=== PATIENT | female | born 1995 | race Caucasian/White ===

== ENCOUNTER 2022-02-17 16:30 | Emergency (ER) | payer BC ==
[2022-02-17 17:01] VITALS: BP 117/79
[2022-02-17] MEDS ORDERED: predniSONE 20 MG Tab PO ONE (18:00)
[2022-02-17] MEDS ORDERED: Famotidine 20 MG Tab PO ONE (18:00)
[2022-02-17 19:12] VITALS: PULSE 55
== END 2022-02-17 19:12 | disposition home or self-care (01) ==
LOC: JD.ED 16:30
DX: T78.40XA Allergy, unspecified, initial encounter (principal); Z91.09 Other allergy status, other than to drugs and biological substances; Z91.048 Other nonmedicinal substance allergy status
CPT/HCPCS: 99283; A9270; J7512; 99282

== ENCOUNTER 2023-01-31 03:30 | Inpatient (IN) | payer OTHER, MEDICAID ==
[~2023-01-31 03:30] MED LIST: Ropivacaine 0.2% PF 2 MG/ML 20 ML SDV ONE
[2023-01-31] MEDS ORDERED: Acetaminophen 325 MG Tab PO PRN (04:06)
[2023-01-31] MEDS ORDERED: Lidocaine 1% 50 ML MDV INJECT ONE (04:06)
[2023-01-31] MEDS ORDERED: Ondansetron 4 MG/2 ML SDV IVPUSH PRN (04:06)
[2023-01-31] MEDS ORDERED: Nalbuphine 10 MG/0.5 ML Syringe IVPUSH PRN (04:06)
[2023-01-31] MEDS ORDERED: Sodium Chloride 0.9% 10 ML Syringe FLUSH PRN (04:06)
[2023-01-31] MEDS ORDERED: Calcium Carbonate 500 MG Tab.Chew PO PRN (04:06)
[2023-01-31] MEDS ORDERED: Oxytocin/Lactated Ringers 10 UNIT/1,000 ML BAG IV SCH ×2 (04:15)
[2023-01-31] MEDS: Lactated Ringers 1,000 ML IV SCH ×4 (04:24→10:52)
[2023-01-31 04:28] LABS: BASOPHILS ABSOLUTE AUTO 0.02 K/mm3 (0.01-0.08); BASOPHILS PERCENT AUTO 0.1 % (0.1-1.2); EOSINOPHILS ABSOLUTE AUTO 0.19 K/mm3 (0.04-0.36); EOSINOPHILS PERCENT AUTO 0.9 (0.7-5.8); HEMATOCRIT 40.3 % (34.1-44.9); HEMOGLOBIN 13.3 gm/dl (11.2-15.7); IMMATURE GRAN PERCENT AUTO 0.5 % (<=1.0); LYMPHOCYTES ABSOLUTE AUTO 1.62 K/mm3 (1.18-3.74); LYMPHOCYTES PERCENT AUTO 7.8 % (19.3-51.7); MEAN CORPUSCULAR HEMOGLOBIN 29.6 pg (25.6-32.2); MEAN CORPUSCULAR VOLUME 89.8 fl (79.4-94.8); MEAN PLATELET VOLUME 11.6 fl (9.4-12.3); MONOCYTES PERCENT AUTO 7.2 % (4.7-12.5); NEUTROPHILS ABSOLUTE AUTO 17.27 K/mm3 (1.56-6.13); NEUTROPHILS PERCENT AUTO 83.5 % (34.0-71.1); PLATELET COUNT,PLT 170 K/mm3 (182-369); RED BLOOD CELL COUNT 4.49 M/mm3 (3.98-5.22)
[2023-01-31] MEDS ORDERED: ePHEDrine 50 MG/ML SDV IVPUSH PRN (05:15)
[2023-01-31] MEDS ORDERED: diphenhydrAMINE 50 MG/ML SDV IVPUSH PRN (05:15)
[2023-01-31] MEDS ORDERED: fentaNYL 100 MCG/2 ML SDV EPIDUR PRN (05:15)
[2023-01-31] MEDS ORDERED: Bupivacaine/fentaNYL/NS 100 ML Bag EPIDUR PRN (05:15)
[2023-01-31] MEDS ORDERED: Benzocaine/Menthol 20%-0.5% Spray 78 GM Cannister TOP PRN (10:25)
[2023-01-31] MEDS ORDERED: Ibuprofen 600 MG Tab PO PRN (10:25)
[2023-01-31] MEDS ORDERED: Witch Hazel Medicated Pads 40/Jar TOP PRN (10:25)
[2023-01-31 15:05] LABS: BASOPHILS ABSOLUTE AUTO 0.02 K/mm3 (0.01-0.08); BASOPHILS PERCENT AUTO 0.1 % (0.1-1.2); EOSINOPHILS ABSOLUTE AUTO 0.04 K/mm3 (0.04-0.36); EOSINOPHILS PERCENT AUTO 0.2 (0.7-5.8); HEMATOCRIT 36.5 % (34.1-44.9); HEMOGLOBIN 11.9 gm/dl (11.2-15.7); IMMATURE GRAN ABSOLUTE AUTO 0.09 K/mm3 (0.00-0.10); IMMATURE GRAN PERCENT AUTO 0.4 % (<=1.0); LYMPHOCYTES ABSOLUTE AUTO 1.82 K/mm3 (1.18-3.74); LYMPHOCYTES PERCENT AUTO 7.6 % (19.3-51.7); MEAN CORPUSCULAR HEMOGLOBIN 29.4 pg (25.6-32.2); MEAN CORPUSCULAR HGB CONC 32.6 g/dl (32.2-35.5); MEAN CORPUSCULAR VOLUME 90.1 fl (79.4-94.8); MEAN PLATELET VOLUME 11.8 fl (9.4-12.3); MONOCYTES ABSOLUTE AUTO 1.63 K/mm3 (0.24-0.36); MONOCYTES PERCENT AUTO 6.8 % (4.7-12.5); NEUTROPHILS ABSOLUTE AUTO 20.21 K/mm3 (1.56-6.13); NEUTROPHILS PERCENT AUTO 84.9 % (34.0-71.1); PLATELET COUNT,PLT 157 K/mm3 (182-369); RED BLOOD CELL COUNT 4.05 M/mm3 (3.98-5.22); WHITE BLOOD CELL COUNT,WBC 23.81 K/mm3 (3.98-10.04)
[2023-01-31 15:33] LABS: SLIDE REVIEW ABNORMAL SMEAR
[2023-01-31 19:35] VITALS: BP 127/72; PULSE 99
== END 2023-01-31 19:40 | disposition home or self-care (01) | DRG 806 ==
LOC: JD.OBCHECK 03:30 → JD.OB 04:09 → OBSVTOIN 09:14 → JD.OB 09:14
PROVIDERS: ADMIT Family Medicine; ATTEND Family Medicine
PROC: 0KQM0ZZ Repair Perineum Muscle, Open Approach (ICD-10-PCS; principal; 2023-01-31)
PROC: 00HU33Z Insertion of Infusion Device into Spinal Canal, Percutaneous Approach (ICD-10-PCS; principal; 2023-01-31)
PROC: 3E0R3BZ Introduction of Anesthetic Agent into Spinal Canal, Percutaneous Approach (ICD-10-PCS; principal; 2023-01-31)
PROC: 10E0XZZ Delivery of Products of Conception, External Approach (ICD-10-PCS; principal; 2023-01-31)
DX: O42.02 Full-term premature rupture of membranes, onset of labor within 24 hours of rupture (principal); O99.12 Other diseases of the blood and blood-forming organs and certain disorders involving the immune mechanism complicating childbirth; Z37.0 Single live birth; O48.0 Post-term pregnancy; D69.6 Thrombocytopenia, unspecified; O70.1 Second degree perineal laceration during delivery; O66.0 Obstructed labor due to shoulder dystocia; O69.81X0 Labor and delivery complicated by cord around neck, without compression, not applicable or unspecified; O77.0 Labor and delivery complicated by meconium in amniotic fluid; Z3A.40 40 weeks gestation of pregnancy; Z88.8 Allergy status to other drugs, medicaments and biological substances
CPT/HCPCS: 36415; 51702; 59025; 59409; 85025; 86140; 86592; A9270-GY; J2590; J2795; J7120

== ENCOUNTER 2023-05-26 21:20 | Emergency (ER) | payer SELFPAY ==
[2023-05-26 21:40] VITALS: BP 125/64; PULSE 50
[2023-05-26] MEDS ORDERED: Sodium Chloride 0.9% 10 ML Syringe FLUSH PRN (22:38)
[2023-05-26 22:53] LABS: BASOPHILS ABSOLUTE AUTO 0.1 K/mm3 (0.0-0.2); BASOPHILS PERCENT AUTO 0.7 % (0.0-1.0); EOSINOPHILS ABSOLUTE AUTO 1.4 K/mm3 (0.0-0.4); EOSINOPHILS PERCENT AUTO 14.6 % (0.0-6.0); HEMATOCRIT 37.4 % (37.0-47.0); HEMOGLOBIN 12.6 gm/dl (12.0-16.0); IMMATURE GRAN ABSOLUTE AUTO 0.02 K/mm3 (0.00-0.05); IMMATURE GRAN PERCENT AUTO 0.2 % (0.0-0.4); LYMPHOCYTES ABSOLUTE AUTO 2.4 K/mm3 (1.0-4.8); LYMPHOCYTES PERCENT AUTO 24.3 % (24.0-44.0); MEAN CORPUSCULAR HEMOGLOBIN 30.7 pg (28.0-32.0); MEAN CORPUSCULAR HGB CONC 33.7 g/dl (32.0-36.0); MEAN PLATELET VOLUME 10.9 fl (9.4-12.3); MONOCYTES ABSOLUTE AUTO 0.6 K/mm3 (0.0-0.8); MONOCYTES PERCENT AUTO 6.2 % (0.0-8.0); NEUTROPHILS ABSOLUTE AUTO 5.3 K/mm3 (1.8-7.7); PLATELET COUNT,PLT 174 K/mm3 (150-400); RED BLOOD CELL COUNT 4.11 M/mm3 (4.10-5.30); WHITE BLOOD CELL COUNT,WBC 9.84 K/mm3 (3.9-11.3)
[2023-05-26 23:23] LABS: ALANINE AMINOTRANSFERASE,ALT 60 U/L (14-59); ALBUMIN 3.1 g/dl (3.4-5.0); ALKALINE PHOSPHATASE 104 U/L (46-116); ANION GAP 13.5 (5-15); ASPARTATE AMNIOTRANSFERASE,AST 36 U/L (15-37); BILIRUBIN TOTAL 0.2 mg/dL (0.2-1.0); BLOOD UREA NITROGEN,BUN 15 mg/dL (7-18); BUN/CREATININE RATIO 16.7 (14-18); CALCIUM 8.6 mg/dL (8.5-10.1); CARBON DIOXIDE,CO2 24 mEq/L (21-32); CHLORIDE,CL 108 mEq/L (98-107); CREATININE 0.9 mg/dL (0.55-1.02); EST CRCL DRUG DOSING (CG) 74.92 mL/min; ESTIMATED GFR 90 mL/min (>60); GLUCOSE RANDOM 103 mg/dL (70-99); LIPASE 31 U/L (16-77); MAGNESIUM 1.8 mg/dL (1.8-2.4); POTASSIUM,K 3.5 mEq/L (3.5-5.1); PROTEIN TOTAL,TP 6.3 g/dl (6.4-8.2); SODIUM,NA 142 mEq/L (136-145)
[2023-05-26 23:25] LABS: APPEARANCE,URINE CLEAR (Clear); BILIRUBIN,URINE NEGATIVE (Negative); COLOR,URINE YELLOW (Yellow); GLUCOSE,URINE NEGATIVE (Negative); KETONES,URINE NEGATIVE (Negative); LEUKOCYTE ESTERASE,URINE NEGATIVE (Negative); NITRITE,URINE NEGATIVE (Negative); OCCULT BLOOD,URINE NEGATIVE (Negative); PROTEIN,URINE NEGATIVE (Negative); UROBILINOGEN,URINE 0.2 (0.2-1.0)
[2023-05-26 23:27] LABS: C-REACTIVE PROTEIN < 0.2 mg/dL (<1.0)
[2023-05-26 23:31] LABS: BACTERIA,URINE FEW /hpf (FEW); RBC,URINE 0-5 /hpf (0-5); SQUAMOUS EPITHELIAL CELLS,UR 0-5 /hpf (0-5); WBC,URINE 0-5 /hpf (0-5)
[2023-05-26 23:32] LABS: MUCUS,URINE MODERATE /hpf (FEW)
[2023-05-26] MEDS ORDERED: Iopamidol 612 MG/ML 100 ML Bottle IVPUSH ONE (23:48)
[2023-05-26] MEDS ORDERED: Iopamidol 612 MG/ML 30 ML SDV IVPUSH ONE (23:48)
[2023-05-27] MEDS ORDERED: Ketorolac 30 MG/ML SDV IVPUSH ONE (01:43)
== END 2023-05-27 02:00 | disposition home or self-care (01) ==
LOC: JD.ED 21:20
DX: R10.84 Generalized abdominal pain (principal); Z86.16 Personal history of COVID-19; Z79.899 Other long term (current) drug therapy; Z91.048 Other nonmedicinal substance allergy status
CPT/HCPCS: 36415; 74177; 80053; 81001; 83690; 83735; 84703; 85025; 86140; 96374; 99284; J1885; Q9967

== ENCOUNTER 2023-07-09 09:44 | Day surgery (SDC) | payer MEDICAID ==
[~2023-07-09 09:44] MED LIST changes: +Lactated Ringers 1,000 ML IV SCH; -Ropivacaine 0.2% PF 2 MG/ML 20 ML SDV ONE; +Sodium Chloride 0.9% 10 ML Syringe FLUSH PRN; +Sodium Chloride 0.9% 10 ML Syringe FLUSH SCH
[2023-07-09] MEDS ORDERED: Lidocaine 1% 2 ML ONE (10:32)
[2023-07-09] MEDS ORDERED: Midazolam 1 MG/ML 2 ML SDV ONE (10:32)
[2023-07-09] MEDS ORDERED: fentaNYL 100 MCG/2 ML SDV ONE (10:32)
[2023-07-09] MEDS ORDERED: Propofol 200 MG/20 ML SDV ONE (10:32)
[2023-07-09 11:43] VITALS: BP 103/68
[2023-07-09 12:25] VITALS: PULSE 74
== END 2023-07-09 12:10 | disposition home or self-care (01) ==
LOC: JD.SDS 09:44
PROVIDERS: ATTEND Surgery
DX: K29.50 Unspecified chronic gastritis without bleeding (principal); K31.7 Polyp of stomach and duodenum; K29.80 Duodenitis without bleeding; K25.9 Gastric ulcer, unspecified as acute or chronic, without hemorrhage or perforation; K21.9 Gastro-esophageal reflux disease without esophagitis; K44.9 Diaphragmatic hernia without obstruction or gangrene; F32.A Depression, unspecified; E66.9 Obesity, unspecified; Z68.34 Body mass index [BMI] 34.0-34.9, adult; Z90.49 Acquired absence of other specified parts of digestive tract; Z79.899 Other long term (current) drug therapy
CPT/HCPCS: 43239; J2250; J2704; J3010; J7120; J3490